=== PATIENT | male | born 1990 | race Caucasian/White ===

== ENCOUNTER 2016-10-07 10:00 | Outpatient (RCR) | payer OTHER | END 2016-10-15 06:57 | disposition home or self-care (01) | LOC: WSPT 10:00 | DX: M54.5 Low back pain (principal) ==

== ENCOUNTER → 2017-01-31 | Outpatient (REF) | LOC: WSOH 09:15 | DX: Z02.89 Encounter for other administrative examinations (principal) ==

== ENCOUNTER 2017-06-14 02:20 | Emergency (ER) | payer OTHER ==
[~2017-06-14] VITALS: Ht 177.8 cm; Wt 100.0 kg
[2017-06-14 02:24] VITALS: TEMP 97.8
[2017-06-14 02:56] LABS: BASO % 0.4 % (0.0-2.0); EOS # 0.2 (0.0-0.7); EOS % 1.7 % (0-4.0); GRAN # 5.1 (1.4-6.5); GRAN % 46.8 % (42.2-75.2); HEMATOCRIT 44.1 % (42.0-52.0); HEMOGLOBIN 15.3 g/dl (13.5-18.0); LYMPH # 4.9 (1.2-3.4); LYMPH % 44.8 % (20.0-51.0); MEAN CELL VOLUME 87 fl (80.0-100.0); MEAN CORPUSCULAR HEMOGLOBIN 30 pg (27.0-31.0); MEAN CORPUSCULAR HGB CONC 35 g/dl (33.0-37.0); MEAN PLATELET VOLUME 10.9 fl (7.4-10.4); MONO # 0.7 (0.1-0.6); PLATELET COUNT 218 K/mm3 (130-400); RED BLOOD COUNT 5.05 M/mm3 (4.20-5.60)
[2017-06-14 03:06] LABS: ALANINE AMINOTRANSFERASE 77 U/L (21-72); ALBUMIN 4.8 gm/dL (3.5-5.0); ALKALINE PHOSPHATASE 80 U/L (50-136); ANION GAP 13 mmol/L (7-16); AST,SGOT 48 U/L (15-37); BILIRUBIN,TOTAL 0.5 mg/dL (0.0-1.0); BLOOD UREA NITROGEN 12 mg/dL (9-20); CALCIUM 9.6 mg/dL (8.4-10.2); CARBON DIOXIDE 25 mmol/L (22-30); CHLORIDE 103 mmol/L (98-107); CREATININE, serum 1.16 mg/dL (0.66-1.25); GLUCOSE 137 mg/dL (74-106); POTASSIUM 3.6 mmol/L (3.4-5.0); SODIUM 140 mmol/L (137-145); TOTAL PROTEIN 7.6 gm/dL (6.4-8.2)
[2017-06-14 03:26] LABS: TROPONIN-I < 0.012 ng/mL (0.000-0.034)
[2017-06-14 04:17] VITALS: BP 121/68; PULSE 80
== END 2017-06-14 04:24 | disposition home or self-care (01) ==
LOC: COL.ER 02:20
PROVIDERS: Family Medicine
DX: E86.0 Dehydration (principal); R00.0 Tachycardia, unspecified
CPT/HCPCS: J2550; J7030

== ENCOUNTER 2017-09-14 22:13 | Emergency (ER) | payer OTHER ==
[~2017-09-14] VITALS: Ht 177.8 cm; Wt 93.5 kg
[2017-09-14 22:22] VITALS: BP 154/85; TEMP 97.9
[2017-09-14 23:12] VITALS: PULSE 92
== END 2017-09-14 23:13 | disposition home or self-care (01) ==
LOC: COL.ER 22:13
DX: S61.211A Laceration without foreign body of left index finger without damage to nail, initial encounter (principal); W26.0XXA Contact with knife, initial encounter; Y92.009 Unspecified place in unspecified non-institutional (private) residence as the place of occurrence of the external cause